=== PATIENT | male | born 1980 | race Two or more races ===

== ENCOUNTER 2024-10-12 18:34 | Emergency (ER) | payer SELFPAY ==
[~2024-10-12] VITALS: Ht 175.3 cm; Wt 79.5 kg
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
--- NOTE | 2024-10-12 20:09 | DVH ---
EXAM: CT HEAD WITHOUT CONTRAST INDICATION: HEAD INJURY TECHNIQUE: CT of the head without intravenous contrast. Radiation Dose Information: CT Dose: CTDI volume is 55.31 mGy. Dose-length product is 997.09 mGy*cm The dose indicators for CT are the volume Computed Tomography (CT) Dose Index (CTDIvol) and the Dose Length Product (DLP), and are measured in units of mGy and mGy-cm, respectively. These indicators are not patient dose, but values generated from the CT scanner acquisition factors. The report includes radiation exposure data for exposures received during this examination. COMPARISON: None FINDINGS: There is no evidence of acute intracranial hemorrhage, extra-axial collection, mass effect, midline s hift, herniation or hydrocephalus. The ventricles, sulci and cisterns are age appropriate. The low-white differentiation is intact. Patchy periventricular and subcortical white matter hypoattenuation is nonspecific but may be related to small vessel ischemic disease. The visualized paranasal sinuses and mastoid air cells are clear. The surrounding soft tissues and osseous structures are unremarkable. 3 closure corey in the midlin e at the top of the skull. IMPRESSION: 1. No acute intracranial abnormality. 2. No intracranial hemorrhage 3. No CT findings of a displaced skull fracture
[2024-10-12 20:51] VITALS: BP 134/84; PULSE 110; RESP 18; TEMP 98.8; O2SAT 98
--- NOTE | 2024-10-17 13:33 | ECG ---
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
== END 2024-10-12 20:55 | disposition home or self-care (01) ==
LOC: ER 18:34 → EDBD 18:34 → ER 20:45
DX: S01.01XA Laceration without foreign body of scalp, initial encounter (principal); R42 Dizziness and giddiness; V89.2XXA Person injured in unspecified motor-vehicle accident, traffic, initial encounter; Y93.89 Activity, other specified; Y92.89 Other specified places as the place of occurrence of the external cause; Y99.8 Other external cause status
CPT/HCPCS: 12002; 70450; 93005